=== PATIENT | female | born 1980 | race Caucasian/White ===

== ENCOUNTER 2016-03-30 21:37 | Emergency (ER) | payer SELFPAY ==
[~2016-03-30] VITALS: Ht 167.6 cm; Wt 48.0 kg
[~2016-03-30 21:37] MED LIST: LEVO.1 PO
[2016-03-30 21:52] VITALS: BP 132/88; PULSE 99; RESP 20; TEMP 98.7; O2SAT 99
--- NOTE | 2016-03-30 23:09 | PD ---
HPI Chief Complaint: Head Injury Time Seen by Provider: 23:01 Travel History International Travel<30 days: No Contact w/Intl Traveler<30days: No Traveled to known affect area: No History of Present Illness HPI This 35-year-old female says that she hit her head and Tuesday. She was on a tire swing and the swing went into the tree and she hit her head on the tree. She did not have a loss of consciousness but had immediate pain. She hit the occipital portion of her head. She's been having a headache since. The headache is somewhat diffuse quite prominent over the forehead and jain area. She has been sensitive to sound. S. He has had some nausea. She has had photophobia. She has a history of thyroidectomy and is on thyroid replacement [facility], [facility] Past Medical History Anemia: Yes Asthma: No Autoimmune Disease: Yes (THYROID) Cancer: No Cardiovascular Problems: No Chemotherapy: No COPD: No Diabetes: No Diminished Hearing: No Endocrine: Yes (HASHIMOTOS, GOITER) GERD: No Genitourinary: No Hiatal Hernia: No Immune Disorder: Yes Musculoskeletal: No Neurologic: Yes (BELLS PALSY) Psychiatric: No Reproductive: No Respiratory: Yes (copd) Immunizations Current: Yes Radiation Therapy: No Sleep Apnea: No Thyroid Disease: Yes Ulcer: Yes Tetanus Vaccination: Unknown ?: Not LMP: 03/30/16 : 2 Para: 2 Ovarian Cysts: Yes Past Surgical History Abdominal Surgery: No Cardiac Surgery: No Ear Surgery: No Endocrine Surgery: No Eye Surgery: Yes (MUSCLE REPAIR BILAT EYES A CHILD) Genitourinary Surgery: No Gynecologic Surgery: No Oral Surgery: No Thoracic Surgery: Yes (TOTAL THYROIDECTOMY) Other Surgery: Yes (TOTAL THYROIDECTOMY) Social History Alcohol Use: Yes (3X WEEK ) Tobacco Use: Yes (/2 ppd) Substance Use: No Allergies-Medications (Allergen,Severity, Reaction): Coded Allergies: No Known Allergies (Verified , 03/30/16) Reported Meds & Prescriptions Reported Meds & Active Scripts Active Reported Synthroid (Levothyroxine Sodium) 100 Mcg Tab 100 Mcg PO DAILY Review of Systems General / Constitutional: No: Fever, Chills Eyes: Positive: Photophobia, No: Diploplia HENT: Positive: Headaches Cardiovascular: No: Chest Pain or Discomfort, Palpitations Respiratory: No: Cough, Shortness of Breath Gastrointestinal: No: Vomiting, Diarrhea Genitourinary: No: Urgency, Frequency Musculoskeletal: No: Myalgias Skin: No Rash Neurologic: Positive: Dizziness, No: Syncope, Focal Abnormalities Psychiatric: No: Anxiety Hematologic/Lymphatic: No: Easy Bruising Physical Exam Narrative GENERAL: Well-developed female SKIN: Warm and dry. HEAD: Atraumatic. Normocephalic. Some tenderness in the posterior scalp EYES: Pupils equal and round. No scleral icterus. No injection or drainage. ENT: No nasal bleeding or discharge. Mucous membranes pink and moist. NECK: Trachea midline. No JVD. CARDIOVASCULAR: Regular rate and rhythm. No murmur appreciated. RESPIRATORY: No accessory muscle use. Clear to auscultation. Breath sounds equal bilaterally. GASTROINTESTINAL: Abdomen soft, non-tender, nondistended. Hepatic and splenic margins not palpable. MUSCULOSKELETAL: No obvious deformities. No clubbing. No cyanosis. No edema. NEUROLOGICAL: Awake and alert. No obvious cranial nerve deficits. Motor grossly within normal limits. Normal speech. PSYCHIATRIC: Appropriate mood and affect; insight and judgment normal. Data Data Last Documented VS Vital Signs Date Time Temp Pulse Resp B/P Pulse Ox O2 Delivery O2 Flow Rate FiO2 03/30/16 23:25 82 18 111/72 99 Room Air 03/30/16 21:[address] Brain W/O Iv Contrast(Rout) (03/31/16 00:01) [facility] Medical Decision Making Medical Screen Exam Complete: Yes Emergency Medical Condition: Yes Medical Record Reviewed: Yes Differential Diagnosis Differential includes concussion, skull fracture, intracranial hemorrhage, Narrative Course CT scan appears negative for fracture or hemorrhage Diagnosis Primary Impression: Cerebral concussion Qualified Code: S06.0X0A - Cerebral concussion, without loss of consciousness , initial encounter Scripts Ibuprofen 800 Mg Ced275 Mg PO Q8H PRN (PAIN 1 TO 10 AND/OR AGITATION) #20 TAB Ref 0 Prov:Erik Alberto MD 03/31/16 Disposition: 01 DISCHARGE HOME Condition: Stable Erik Alberto MD Mar 30, 2016 23:09
[2016-03-30 23:25] VITALS: BP 111/72; PULSE 82; RESP 18; O2SAT 99
[2016-03-31] MEDS ORDERED: IBUP800T23 PO (00:21)
--- NOTE | 2016-03-31 00:25 | RADHPO ---
EXAM DATE/TIME: 03/31/2016 00:03 [facility] COMPARISON: No previous studies available for comparison. INDICATIONS : Trauma to back of head. RADIATION DOSE: 63.67 CTDIvol (mGy) MEDICAL HISTORY : None SURGICAL HISTORY : Thyroidectomy. ENCOUNTER: Initial ACUITY: 1 day PAIN SCALE: 7/10 LOCATION: Bilateral frontal temporal TECHNIQUE: Multiple contiguous axial images were obtained of the head. Using automated exposure control and adj ustment of the mA and/or kV according to patient size, radiation dose was kept as low as reasonably a chievable to obtain optimal diagnostic quality images. FINDINGS: CEREBRUM: The ventricles are normal for age. No evidence of midline shift, mass lesion, hemorrhage or acute in farction. No extra-axial fluid collections are seen. POSTERIOR FOSSA: The cerebellum and brainstem are intact. The 4th ventricle is midline. The cerebellopontine angle i s unremarkable. EXTRACRANIAL: The visualized portion of the orbits is intact. SKULL: The calvaria is intact. No evidence of skull fracture. CONCLUSION: Normal examination. Robert Valera MD on March 31, 2016 at 0:24 Board Certified Radiologist. This report was verified electronically.
[2016-03-31 00:30] VITALS: BP 134/82; PULSE 83; RESP 18; O2SAT 100
== END 2016-03-31 01:05 | disposition home or self-care (01) ==
LOC: PHED 21:37
DX: S06.0X0A Concussion without loss of consciousness, initial encounter (principal); W22.8XXA Striking against or struck by other objects, initial encounter; Y93.89 Activity, other specified
CPT/HCPCS: 70450

== ENCOUNTER 2016-09-19 19:01 | Emergency (ER) | payer SELFPAY ==
[~2016-09-19] VITALS: Ht 167.6 cm; Wt 46.3 kg
[~2016-09-19 19:01] MED LIST changes: +IBUP800T23 PO
[2016-09-19 19:06] VITALS: BP 131/82; PULSE 110; RESP 16; TEMP 99.5; O2SAT 100
[2016-09-19] MEDS ORDERED: SODIUM CHLOR 0.9% 1000 ML INJ 1,000 ML IV SCH (19:23)
[2016-09-19] MEDS ORDERED: ONDANSETRON HCL 4 MG/2 ML VIAL IVP ONE (19:30)
[2016-09-19] MEDS ORDERED: KETOROLAC TROMETHAMINE 30 MG/ML (IVP) VIAL IVP ONE (19:30)
[2016-09-19] MEDS ORDERED: MORPHINE SULFATE 4 MG/ML INJ IV PUSH ONE (19:30)
[2016-09-19] MEDS ORDERED: SODIUM CHLORIDE 0.9% FLUSH 10 ML FLUSH IV FLUSH PRN (19:30)
--- NOTE | 2016-09-19 19:31 | PD ---
HPI Chief Complaint: GI Complaint Time Seen by Provider: 19:17 Travel History International Travel<30 days: No Contact w/Intl Traveler<30days: No Traveled to known affect area: No History of Present Illness HPI The patient is a 36-year-old female who presents emergency department for 2 weeks of abdominal pain and discomfort. The patient has a two-week history of intermittent lower abdominal pain or discomfort which is progressing in nature. She does complain of mild nausea and distention without any vomiting. She does note diarrhea which she describes as loose, watery, without any visible blood. The patient's pain is mostly located in the lower aspect of the abdomen bilaterally. Last menstrual cycle was on the of this month, she does state she is sexually active, but denies any acute change in vaginal discharge. She does note a chronic white vaginal discharge, but denies any change in the consistency or smell. She denies any associated dysuria, frequency, or urgency. She denies any fever, chills, or sweats. However, was noted patient had a fever in triage. She denies any previous abdominal surgeries. Symptoms are moderate, there are no current alleviating or exacerbating factors. She denies any recent international travel, antibiotic usage, or recent hospitalizations. She denies any history of C. difficile. PFSH Past Medical History Anemia: Yes Asthma: No Autoimmune Disease: Yes (THYROID) Cancer: No Cardiovascular Problems: No Chemotherapy: No COPD: No Diabetes: No Diminished Hearing: No Endocrine: Yes (HASHIMOTOS, GOITER) GERD: No Genitourinary: No Hiatal Hernia: No Immune Disorder: Yes Musculoskeletal: No Neurologic: Yes (BELLS PALSY) Psychiatric: No Reproductive: No Respiratory: Yes (copd) Immunizations Current: Yes Radiation Therapy: No Sleep Apnea: No Thyroid Disease: Yes Ulcer: Yes : 2 Para: 2 Ovarian Cysts: Yes Past Surgical History Abdominal Surgery: No Cardiac Surgery: No Ear Surgery: No Endocrine Surgery: No Eye Surgery: Yes (MUSCLE REPAIR BILAT EYES A CHILD) Genitourinary Surgery: No Gynecologic Surgery: No Oral Surgery: No Thoracic Surgery: Yes (TOTAL THYROIDECTOMY) Other Surgery: Yes (TOTAL THYROIDECTOMY) Social History Alcohol Use: Yes (3X WEEK ) Tobacco Use: Yes (1/2 ppd) Substance Use: No Allergies-Medications (Allergen,Severity, Reaction): Coded Allergies: No Known Allergies (Verified , 03/30/16) Reported Meds & Prescriptions Reported Meds & Active Scripts Active Ibuprofen 800 Mg Tab 800 Mg PO Q8H PRN Reported Synthroid (Levothyroxine Sodium) 100 Mcg Tab 100 Mcg PO DAILY Review of Systems Except as stated in HPI: all other systems reviewed are Neg General / Constitutional: No: Fever, Chills Cardiovascular: No: Chest Pain or Discomfort Respiratory: No: Shortness of Breath Gastrointestinal: Positive: Nausea, Diarrhea, Abdominal Pain, Changes in Bowel Habits, No: Vomiting Genitourinary: No: Dysuria Musculoskeletal: No: Myalgias, Arthralgias Skin: No Rash Physical Exam Narrative GENERAL: Awake, alert, pleasant 36-year-old female who appears her stated age and is in no acute respiratory distress. SKIN: Focused skin assessment warm/dry. HEAD: Atraumatic. Normocephalic. EYES: Pupils equal and round. No scleral icterus. No injection or drainage. ENT: No nasal bleeding or discharge. Mucous membranes pink and moist. NECK: Trachea midline. No JVD. CARDIOVASCULAR: Regular, tachycardic with a heart rate of 110. RESPIRATORY: No accessory muscle use. Clear to auscultation. Breath sounds equal bilaterally. GASTROINTESTINAL: Abdomen soft, mild tenderness in the lower quadrants bilaterally. No rebound tenderness or guarding. Back: No CVA tenderness. MUSCULOSKELETAL: No obvious deformities. No clubbing. No cyanosis. No edema. NEUROLOGICAL: Awake and alert. No obvious cranial nerve deficits. Motor grossly within normal limits. Normal speech. PSYCHIATRIC: Appropriate mood and affect; insight and judgment normal. Data Data Last Documented VS Vital Signs Date Time Temp Pulse Resp B/P Pulse Ox O2 Delivery O2 Flow Rate FiO2 09/19/16 21:55 89 16 110/65 99 Room Air 09/19/16 19:06 99.5 Orders Complete Blood Count With Diff (09/19/16 19:23) Comprehensive Metabolic Panel (09/19/16 19:23) Lipase (09/19/16 19:23) Urinalysis - C+S If Indicated (09/19/16 19:23) Ct Abd/Pel W Iv Contrast(Rout) (09/19/16 19:23) Iv Access Insert/Monitor (09/19/16 19:23) Ecg Monitoring (09/19/16 19:23) Oximetry (09/19/16 19:23) Morphine Inj (Morphine Inj) (09/19/16 19:30) Ondansetron Inj (Zofran Inj) (09/19/16 19:30) Sodium Chlor 0.9% 1000 Ml Inj (Ns 1000 M (09/19/16 19:23) Sodium Chloride 0.9% Flush (Ns Flush) (09/19/16 19:30) Ketorolac Inj (Toradol Inj) (09/19/16 19:30) Ed Urine Pregnancytest Poc (09/19/16 19:23) Oral Contrast - Adult (09/19/16 19:30) Diatrizoate Liq ( Gastroview Liq) (09/19/16 19:42) Urine Culture (09/19/16 19:30) Potassium Chloride (Kcl) (09/19/16 20:30) Iohexol 350 Inj (Omnipaque 350 Inj) (09/19/16 21:40) Labs Laboratory Tests Test 09/19/16 19:30 White Blood Count 8.0 TH/MM3 Red Blood Count 5.75 MIL/MM3 Hemoglobin 10.6 GM/DL Hematocrit 34.8 % Mean Corpuscular Volume 60.6 FL Mean Corpuscular Hemoglobin 18.5 PG Mean Corpuscular Hemoglobin 30.5 % Concent Red Cell Distribution Width 19.1 % Platelet Count 450 TH/MM3 Mean Platelet Volume 8.4 FL Neutrophils (%) (Auto) 61.5 % Lymphocytes (%) (Auto) 23.3 % Monocytes (%) (Auto) 13.2 % Eosinophils (%) (Auto) 1.3 % Basophils (%) (Auto) 0.7 % Neutrophils # (Auto) 4.8 TH/MM3 Lymphocytes # (Auto) 1.9 TH/MM3 Monocytes # (Auto) 1.1 TH/MM3 Eosinophils # (Auto) 0.1 TH/MM3 Basophils # (Auto) 0.1 TH/MM3 CBC Comment AUTO DIFF Differential Comment AUTO DIFF CONFIRMED Platelet Estimate NORMAL Platelet Morphology Comment NORMAL Ovalocytes 1+ Urine Color YELLOW Urine Turbidity SLIGHT Urine pH 6.0 Urine Specific [place] 1.007 Urine Protein NEG mg/dL Urine Glucose (UA) NEG mg/dL Urine Ketones NEG mg/dL Urine Occult Blood NEG Urine Nitrite NEG Urine Bilirubin NEG Urine Leukocyte Esterase SMALL Urine WBC 6-8 /hpf Urine WBC Clumps OCC Urine Squamous Epithelial 0-5 /hpf Cells Urine Bacteria FEW /hpf Microscopic Urinalysis Comment CULTURE INDICATED Sodium Level 139 MEQ/L Potassium Level 3.2 MEQ/L Chloride Level 104 MEQ/L Carbon Dioxide Level 26.9 MEQ/L Anion Gap 8 MEQ/L Blood Urea Nitrogen 8 MG/DL Creatinine 0.88 MG/DL Estimat Glomerular Filtration 74 ML/MIN Rate Random Glucose 108 MG/DL Calcium Level 9.1 MG/DL Total Bilirubin 0.6 MG/DL Aspartate Amino Transf 10 U/L (AST/SGOT) Alanine Aminotransferase 14 U/L (ALT/SGPT) Alkaline Phosphatase 56 U/L Total Protein 8.3 GM/DL Albumin 4.3 GM/DL Lipase 183 U/L [facility] Medical Decision Making Medical Screen Exam Complete: Yes Emergency Medical Condition: Yes Medical Record Reviewed: Yes Interpretation(s) CT the abdomen and pelvis reveals mild amount of free fluid in the cul-de-sac. Possible bilateral ovarian cyst. Otherwise negative CT abdomen/pelvis with contrast. Laboratory Tests Test 09/19/16 19:30 White Blood Count 8.0 TH/MM3 Red Blood Count 5.75 MIL/MM3 Hemoglobin 10.6 GM/DL Hematocrit 34.8 % Mean Corpuscular Volume 60.6 FL Mean Corpuscular Hemoglobin 18.5 PG Mean Corpuscular Hemoglobin 30.5 % Concent Red Cell Distribution Width 19.1 % Platelet Count 450 TH/MM3 Mean Platelet Volume 8.4 FL Neutrophils (%) (Auto) 61.5 % Lymphocytes (%) (Auto) 23.3 % Monocytes (%) (Auto) 13.2 % Eosinophils (%) (Auto) 1.3 % Basophils (%) (Auto) 0.7 % Neutrophils # (Auto) 4.8 TH/MM3 Lymphocytes # (Auto) 1.9 TH/MM3 Monocytes # (Auto) 1.1 TH/MM3 Eosinophils # (Auto) 0.1 TH/MM3 Basophils # (Auto) 0.1 TH/MM3 CBC Comment AUTO DIFF Differential Comment AUTO DIFF CONFIRMED Platelet Estimate NORMAL Platelet Morphology Comment NORMAL Ovalocytes 1+ Urine Color YELLOW Urine Turbidity SLIGHT Urine pH 6.0 Urine Specific [place] 1.007 Urine Protein NEG mg/dL Urine Glucose (UA) NEG mg/dL Urine Ketones NEG mg/dL Urine Occult Blood NEG Urine Nitrite NEG Urine Bilirubin NEG Urine Leukocyte Esterase SMALL Urine WBC 6-8 /hpf Urine WBC Clumps OCC Urine Squamous Epithelial 0-5 /hpf Cells Urine Bacteria FEW /hpf Microscopic Urinalysis Comment CULTURE INDICATED Sodium Level 139 MEQ/L Potassium Level 3.2 MEQ/L Chloride Level 104 MEQ/L Carbon Dioxide Level 26.9 MEQ/L Anion Gap 8 MEQ/L Blood Urea Nitrogen 8 MG/DL Creatinine 0.88 MG/DL Estimat Glomerular Filtration 74 ML/MIN Rate Random Glucose 108 MG/DL Calcium Level 9.1 MG/DL Total Bilirubin 0.6 MG/DL Aspartate Amino Transf 10 U/L (AST/SGOT) Alanine Aminotransferase 14 U/L (ALT/SGPT) Alkaline Phosphatase 56 U/L Total Protein 8.3 GM/DL Albumin 4.3 GM/DL Lipase 183 U/L Differential Diagnosis Differential diagnosis includes viral syndrome, enteritis, colitis, food poisoning, pancreatitis, left foot abnormality, dehydration, pyelonephritis, cervicitis, PID. Narrative Course IV was established, labs are drawn and sent, and the patient was placed on cardiac telemetry monitoring and continuous pulse oximetry monitoring. The patient was administered morphine, Toradol, Zofran, and IV fluids. UA was sent to lab and bedside UA test was obtained. CT of the abdomen and pelvis with IV and oral contrast was ordered. UA reveals 6-8 WBCs, potassium 3.2, hemoglobin is in the 10 range consistent with mild anemia, otherwise labs are unremarkable. CT the abdomen and pelvis reveals possible bilateral ovarian cyst and a mild amount of free fluid in the cul-de-sac. The patient's had diarrhea for 2 weeks, will treat with Cipro and Flagyl. She is advised to follow-up with her primary physician and gastroenterology if symptoms worsen or progress. The patient will be provided a copy of her CT results and lab results at discharge. Diagnosis Primary Impression: Diarrhea Qualified Code: R19.7 - Diarrhea, unspecified type Additional Impressions: UTI (urinary tract infection) Qualified Code: N39.0 - Urinary tract infection without hematuria, site unspecified Hypokalemia Patient Instructions: General Instructions Additional Instructions: Please provide the patient a copy of her CT results and lab results at discharge. Medications as directed. Follow-up with her primary physician, you may benefit from outpatient stool studies and follow-up with gastroenterology if symptoms persist. Med/Other Pt SpecificInfo: Prescription(s) given Scripts Dicyclomine (Bentyl)10 Mg Cap10 Mg PO QID #20 CAP Ref 0 Prov:Andi Dooley MD 09/19/16 Metronidazole (Flagyl)500 Mg [id number] Mg PO BID 7 Days Ref 0 Prov:Andi Dooley MD 09/19/16 Ciprofloxacin (Cipro)500 Mg [id number] Mg PO BID 7 Days Ref 0 Prov:Andi Dooley MD 09/19/16 Disposition: 01 DISCHARGE HOME Condition: Stable Andi Dooley MD Sep 19, 2016 19:31
[2016-09-19] MEDS ORDERED: DIATRIZOATE MEGLUM/DIATRIZOATE SOD 9 ML CUP ONE (19:42)
[2016-09-19 19:47] LABS: BLOOD, URINE NEG (NEG); GLUCOSE,URINE NEG (NEG); KETONE, URINE NEG (NEG); NITRITE,URINE NEG (NEG)
[2016-09-19 19:55] LABS: CHLORIDE 104 MEQ/L (98-107); POTASSIUM 3.2 MEQ/L (3.5-5.1); SODIUM (NA) 139 MEQ/L (136-145)
[2016-09-19 19:58] LABS: AUTOMATED NEUTROPHIL # 4.8 TH/MM3 (1.8-7.7); BASOPHIL # 0.1 TH/MM3 (0-0.2); BASOPHIL % 0.7 % (0.0-2.0); EOSINOPHIL # 0.1 TH/MM3 (0-0.4); EOSINOPHIL % 1.3 % (0.0-4.0); HEMATOCRIT 34.8 % (35.0-46.0); LYMPH % 23.3 % (9.0-44.0); LYMPHOCYTE # 1.9 TH/MM3 (1.0-4.8); MEAN CELL VOLUME 60.6 FL (80.0-100.0); MEAN CORPUSCULAR HEMOGLOBIN 18.5 PG (27.0-34.0); MEAN CORPUSCULAR HGB CONC 30.5 % (32.0-36.0); MONO % 13.2 % (0.0-8.0); NEUT % 61.5 % (16.0-70.0); PLATELET COUNT 450 TH/MM3 (150-450); RED BLOOD COUNT 5.75 MIL/MM3 (4.00-5.30); RED CELL DISTRIBUTION WIDTH 19.1 % (11.6-17.2)
[2016-09-19 19:59] LABS: ANION GAP 8 MEQ/L (5-15); BICARBONATE 26.9 MEQ/L (21.0-32.0); BLOOD UREA NITROGEN 8 MG/DL (7-18); URINE COLOR YELLOW (YELLW/STRAW)
[2016-09-19 20:00] LABS: SQUAMOUS EPITHELIAL CELL URINE 0-5 /hpf (0-5)
[2016-09-19 20:01] LABS: ALT (GPT) 14 U/L (10-53); AST (GOT) 10 U/L (15-37)
[2016-09-19 20:02] LABS: GLOMERULAR FILTRATION RATE 74 ML/MIN (>89)
[2016-09-19 20:03] LABS: BACTERIA, URINE FEW /hpf; COMMENT (UR) CULTURE INDICATED; CULTURE IF INDICATED CULTURE INDICATED; TOTAL BILIRUBIN ADULT 0.6 MG/DL (0.2-1.0)
[2016-09-19 20:04] LABS: ALKALINE PHOSPHATASE 56 U/L (45-117)
[2016-09-19 20:06] LABS: HEMO FLAGS AUTO DIFF
[2016-09-19] MEDS ORDERED: POTASSIUM CHLORIDE 20 MEQ CONTROLLED RELEASE TAB PO ONE (20:30)
[2016-09-19 20:33] LABS: OVALOCYTES 1+ (NORMAL); PLATELET ESTIMATE SMEAR NORMAL (NORMAL); PLATELET MORPHOLOGY NORMAL (NORMAL); SCAN/DIFF AUTO DIFF CONFIRMED
[2016-09-19] MEDS ORDERED: IOHEXOL 350 MG/ML 10 ML VIAL (for RAD DIAG) IV ONE (21:40)
[2016-09-19 21:55] VITALS: BP 110/65; PULSE 89; RESP 16; O2SAT 99
--- NOTE | 2016-09-19 22:03 | RADRPT ---
EXAM DATE/TIME: 09/19/2016 21:27 [facility] COMPARISON: No previous studies available for comparison. INDICATIONS : Lower abdominal pain for two weeks. IV CONTRAST: 75 cc Omnipaque 350 (iohexol) IV ORAL CONTRAST: Prescribed oral contrast ingested. RADIATION DOSE: 4.46 CTDIvol (mGy) MEDICAL HISTORY : Chronic obstructive pulmonary disease. SURGICAL HISTORY : None. ENCOUNTER: Initial ACUITY: 2 weeks PAIN SCALE: 8/10 LOCATION: Bilateral lower quadrant TECHNIQUE: Volumetric scanning of the abdomen and pelvis was performed. Using automated exposure control and ad justment of the mA and/or kV according to patient size, radiation dose was kept as low as reasonably achievable to obtain optimal diagnostic quality images. DICOM format image data is available electro nically for review and comparison. FINDINGS: LOWER LUNGS: The visualized lower lungs are clear. LIVER: Homogeneous density without lesion. There is no dilation of the biliary tree. No calcified gallston es. SPLEEN: Normal size without lesion. PANCREAS: Within normal limits. KIDNEYS: Normal in size and shape. There is no mass, stone or hydronephrosis. ADRENAL GLANDS: Within normal limits. VASCULAR: There is no aortic aneurysm. BOWEL/MESENTERY: Oral contrast passes through to the distal small bowel. No dilated loops of small or large bowel see n. ABDOMINAL WALL: Within normal limits. RETROPERITONEUM: There is no lymphadenopathy. BLADDER: No wall thickening or mass. REPRODUCTIVE: Low density areas in the adnexa bilaterally suggest bilateral ovarian cysts. Small amount of free fl uid in the cul-de-sac. INGUINAL: There is no lymphadenopathy or hernia. MUSCULOSKELETAL: Within normal limits for patient age. CONCLUSION: 1. Mild amount of free fluid in the cul-de-sac. Possible bilateral ovarian cysts. 2. Otherwise negative CT abdomen/pelvis with contrast. Silvano Ching MD on September 19, 2016 at 21:58 Board Certified Radiologist. This report was verified electronically.
[2016-09-19] MEDS ORDERED: DICY10 PO (22:11)
[2016-09-19] MEDS ORDERED: CIPR-9 PO (22:11)
[2016-09-19] MEDS ORDERED: METR-1 PO (22:11)
[2016-09-19 22:38] VITALS: BP 112/68
== END 2016-09-19 22:40 | disposition home or self-care (01) ==
LOC: PHED 19:01
DX: R19.7 Diarrhea, unspecified (principal); N39.0 Urinary tract infection, site not specified; B96.89 Other specified bacterial agents as the cause of diseases classified elsewhere; E87.6 Hypokalemia
CPT/HCPCS: 74177; 80053; 81001; 83690; 84703; 85025; 87077; 87086; 87186; 96361; 96374; 96375; 99285; J1885; J2270; J2405; J7030; Q9963; Q9967

== ENCOUNTER 2016-11-22 19:05 | Emergency (ER) | payer MEDICAID, OTHER ==
[~2016-11-22 19:05] MED LIST changes: +CIPR-9 PO; +DICY10 PO; +METR-1 PO
[2016-11-22 19:07] VITALS: BP 134/75; PULSE 97; RESP 16; TEMP 98.5; O2SAT 100
[2016-11-22 19:44] LABS: AUTOMATED NEUTROPHIL # 5.2 TH/MM3 (1.8-7.7); BASOPHIL # 0.1 TH/MM3 (0-0.2); BASOPHIL % 0.9 % (0.0-2.0); EOSINOPHIL # 0.2 TH/MM3 (0-0.4); EOSINOPHIL % 1.9 % (0.0-4.0); HEMATOCRIT 30.4 % (35.0-46.0); HEMO FLAGS DIFF FINAL; LYMPH % 27.6 % (9.0-44.0); LYMPHOCYTE # 2.5 TH/MM3 (1.0-4.8); MEAN CELL VOLUME 58.9 FL (80.0-100.0); MEAN CORPUSCULAR HEMOGLOBIN 17.4 PG (27.0-34.0); MONO % 12.8 % (0.0-8.0); NEUT % 56.8 % (16.0-70.0); PLATELET COUNT 411 TH/MM3 (150-450); RED BLOOD COUNT 5.15 MIL/MM3 (4.00-5.30); RED CELL DISTRIBUTION WIDTH 18.8 % (11.6-17.2); WHITE BLOOD COUNT 9.2 TH/MM3 (4.0-11.0)
[2016-11-22 19:54] LABS: MEAN CORPUSCULAR HGB CONC 29.5 % (32.0-36.0)
[2016-11-22 20:08] LABS: BICARBONATE 26.9 MEQ/L (21.0-32.0); POTASSIUM 3.7 MEQ/L (3.5-5.1)
[2016-11-22 22:27] LABS: BLOOD, URINE NEG (NEG); COMMENT (UR) CULT NOT INDICATED; CULTURE IF INDICATED CULT NOT INDICATED; GLUCOSE,URINE NEG (NEG); KETONE, URINE NEG (NEG); MUCUS URINE FEW /lpf (OCC); NITRITE,URINE NEG (NEG); SQUAMOUS EPITHELIAL CELL URINE 3 /hpf (0-5); URINE COLOR YELLOW (YELLW/STRAW)
[2016-11-22] MEDS ORDERED: METR-1 PO (22:49)
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
[2016-11-23 00:15] LABS: CHLAMYDIA PCR NOT DETECTED (NOT DETECT); NEISSERIA PCR NOT DETECTED (NOT DETECT)
== END 2016-11-22 23:20 | disposition home or self-care (01) ==
LOC: NEPD 19:05
DX: N76.0 Acute vaginitis (principal); B96.89 Other specified bacterial agents as the cause of diseases classified elsewhere; D64.9 Anemia, unspecified; E06.3 Autoimmune thyroiditis; E04.9 Nontoxic goiter, unspecified; J44.9 Chronic obstructive pulmonary disease, unspecified; F17.200 Nicotine dependence, unspecified, uncomplicated; Z79.899 Other long term (current) drug therapy
CPT/HCPCS: 80048; 81001; 84702; 85025; 87210; 87491; 87591

== ENCOUNTER 2016-12-11 19:19 | Emergency (ER) | payer MEDICAID, OTHER ==
[~2016-12-11] VITALS: Ht 167.6 cm; Wt 46.9 kg
[2016-12-11 19:29] VITALS: BP 114/75; PULSE 99; RESP 18; TEMP 98.4; O2SAT 99
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
== END 2016-12-11 20:55 | disposition home or self-care (01) ==
LOC: PHED 19:19
DX: O26.891 Other specified pregnancy related conditions, first trimester (principal); R10.2 Pelvic and perineal pain; L29.8 Other pruritus; E07.9 Disorder of thyroid, unspecified; Z72.0 Tobacco use; Z86.2 Personal history of diseases of the blood and blood-forming organs and certain disorders involving the immune mechanism; Z86.69 Personal history of other diseases of the nervous system and sense organs; Z87.09 Personal history of other diseases of the respiratory system; Z87.19 Personal history of other diseases of the digestive system; Z3A.11 11 weeks gestation of pregnancy
CPT/HCPCS: 99282

== ENCOUNTER 2017-03-05 22:33 | Emergency (ER) | payer MEDICAID ==
[~2017-03-05] VITALS: Ht 167.6 cm; Wt 50.5 kg
[~2017-03-05 22:33] MED LIST changes: -CIPR-9 PO; -DICY10 PO; -IBUP800T23 PO; -METR-1 PO
[2017-03-05 22:37] VITALS: BP 144/77; PULSE 105; RESP 18; TEMP 98.1; O2SAT 100
[2017-03-05] MEDS ORDERED: PRENAVITE TABLETS PO (22:47)
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
== END 2017-03-05 23:22 | disposition home or self-care (01) ==
LOC: PHED 22:33
DX: S30.1XXA Contusion of abdominal wall, initial encounter (principal); J44.9 Chronic obstructive pulmonary disease, unspecified; W18.30XA Fall on same level, unspecified, initial encounter
CPT/HCPCS: 99282

== ENCOUNTER 2017-05-22 13:36 | Emergency (ER) | payer MEDICAID ==
[~2017-05-22] VITALS: Ht 167.6 cm; Wt 53.5 kg
[~2017-05-22 13:36] MED LIST changes: +PRENAVITE TABLETS PO
--- NOTE | 2017-05-22 14:43 | PD ---
HPI Chief Complaint vb, nipple cyst Date Seen: May 22, 2017 Time Seen: 14:37 Travel History International Travel<30 Days: No Contact w/Intl Traveler<30Days: No Known Affected Area: No History of Present Illness HPI pt. is a 36 y/o @ 32 5/[address] sifuentes, present w/ c/o vb and nipple cyst. pt. states had intercourse ! 2 days ago and had sharp pain during intercourse. pt. sttes had bright red blood after, now more brownish. some cramping. +FM, no ctxs, no lof. pt. also states has been picking dried colostrum from her nipple and now has cyst, has had it before. has gotten slightly larger. Weeks Gestation: 32 Para: 2 : 3 History Past Medical History Medical History: Denies Significant Hx Obstetric History Obstetric History , x 2 Past Surgical History Surgical History: No Previous Surgery Family History Family History: Negative Social History Alcohol Use: No Tobacco Use: No Substance Abuse: No Allergies-Medications (Allergen,Severity, Reaction): Coded Allergies: No Known Allergies (Verified Adverse Reaction, Unknown, 03/05/17) Home Meds Reported Medications [Prenavite Tablets] No Conflict Check, 1 TAB PO DAILY 03/05/17 Levothyroxine (Synthroid) 100 Mcg Tab, 100 MCG PO DAILY for Thyroid, #30 TAB 0 Refills 01/04/16 Review of Systems Except as stated in HPI: all other systems reviewed are Neg Physical Exam Narrative GENERAL: Well-nourished, well-developed patient. SKIN: Warm and dry. HEAD: Normocephalic and atraumatic. EYES: No scleral icterus. No injection or drainage. ENT: No nasal drainage noted. Mucous membranes pink. Airway patent. NECK: Supple, trachea midline. No JVD. CARDIOVASCULAR: Regular rate and rhythm without murmurs, gallops, or rubs. RESPIRATORY: Breath sounds equal bilaterally. No accessory muscle use. BREASTS: cyst at duct on anterior surface left nipple. ABDOMEN/GI: Abdomen soft, non-tender, bowel sounds present, no rebound, no guarding Gravid GENITOURINARY: Cervix: ectropion w/ some trauma Uterine Contractions: none FHT's: Category: 1 Reactive: + Variability: mod EXTREMITIES: No cyanosis or edema. BACK: Nontender without obvious deformity. No CVA tenderness. NEUROLOGICAL: Awake and alert. Motor and sensory grossly within normal limits. Five out of 5 muscle strength in all muscle groups. Normal speech. Data Data Vital Signs Reviewed: Yes Orders Orders Horse Race Timer Clear For Discharge (05/22/17 ) [facility] Medical Record Reviewed: Yes Plan pt. to be d/c to home. conditions d/w pt. pt. missed last visit and encouraged to resched. all ? answered. pt. given precautions for return. Diagnosis Diagnosis: Primary Impression: Vaginal bleeding during Additional Impressions: Cyst of left nipple 32 weeks gestation of Disposition: DISCHARGE HOME Chepe Rosenbaum Jr., MD May 22, 2017 14:43
== END 2017-05-22 14:50 | disposition home or self-care (01) ==
LOC: HOBED 13:36
DX: O46.93 Antepartum hemorrhage, unspecified, third trimester (principal); O99.89 Other specified diseases and conditions complicating pregnancy, childbirth and the puerperium; N60.02 Solitary cyst of left breast; Z3A.32 32 weeks gestation of pregnancy
CPT/HCPCS: 59025